=== PATIENT | male | born 1955 | race Hispanic/Latino ===

== ENCOUNTER 2024-07-22 10:07 | Inpatient (IN) | payer MEDICARE ==
[2024-07-22] VITALS (8 sets, daily range): BP systolic 156–183; BP diastolic 67–71; PULSE 64–82; RESP 16–20; TEMP 97.6–99; O2SAT 93–100
[~2024-07-22] VITALS: Ht 167.6 cm; Wt 83.5 kg
[2024-07-22 10:41] LABS: BASOPHILS % 0.2 % (0.0-1.0); EOSINOPHILS % 0.2 % (0.0-6.0); HEMATOCRIT 43.8 % (38.2-49.6); HEMOGLOBIN 14.6 g/dL (14.0-18.0); LYMPHOCYTES # (AUTO) 2.1 (1.0-3.2); LYMPHOCYTES % 16.1 % (18.0-39.1); MEAN CORPUSCULAR HEMOGLOBIN 28.6 pg (28-32); MEAN CORPUSCULAR HGB CONC 33.3 g/dL (31-35); MEAN CORPUSCULAR VOLUME 85.9 fL (81-99); MONOCYTES % 8.1 % (4.4-11.3); NEUTROPHILS # (AUTO) 9.6 (2.1-6.9); NEUTROPHILS % 75.2 % (38.7-80.0); PLATELET COUNT 240 x10e3/uL (140-360); RED CELL DISTRIBUTION WIDTH 13.1 % (11.7-14.4); WHITE BLOOD COUNT 12.76 x10e3/uL (4.8-10.8)
[2024-07-22 10:52] LABS: INR 0.92; PROTHROMBIN TIME 13.2 seconds (11.9-14.5)
[2024-07-22 10:53] LABS: PARTIAL THROMBOPLASTIN TIME 25.9 seconds (23.8-35.5)
[2024-07-22] MEDS: Morphine 4mg INJECTION 4 MG/ML INJ IV STA (10:59)
[2024-07-22] MEDS: SODIUM CHLORIDE 0.9% 1000ML 1,000 ML IV STA (11:00)
[2024-07-22] MEDS: ONDANSETRON HCL INJ 2MG/ML 2ML 2 MG/ML VIAL IV STA (11:00)
[2024-07-22 11:01] LABS: ALBUMIN 3.7 g/dL (3.5-5.0); ALBUMIN/GLOBULIN RATIO 0.8 (0.8-2.0); ANION GAP 15.3 mmol/L (8-16); BILIRUBIN,TOTAL 0.7 mg/dL (0.2-1.2); CALCIUM 9.6 mg/dL (8.4-10.2); CREATININE, SERUM 1.01 mg/dL (0.72-1.25); MAGNESIUM 2.1 MG/DL (1.3-2.1); POTASSIUM 4.3 mmol/L (3.5-5.1); TOTAL PROTEIN 8.1 g/dL (6.5-8.1)
[2024-07-22 11:07] LABS: TROPONIN I 0.015 ng/mL (0-0.300)
[2024-07-22] MEDS ORDERED: IOPAMIDOL 370 MG/ML 100 ML INFUS..BTL INJ ONE (11:17)
[2024-07-22 11:32] LABS: CHOL/HDL RATIO 3.9 (3.9-4.7)
[2024-07-22] MEDS ORDERED: GADOBENATE DIMEGLUMINE 1 ML IV ONE (13:01)
[2024-07-22] MEDS: SODIUM CHLORIDE 0.9% 1000ML 1,000 ML IV SCH (14:54)
[2024-07-22] MEDS ORDERED: PANTOPRAZOLE SO40 MG PO (15:30)
[2024-07-22] MEDS ORDERED: PRAVASTATIN SOD20 MG PO (15:30)
[2024-07-22] MEDS ORDERED: LISINOPRIL-HCT1 EACH PO (15:30)
[2024-07-22] MEDS ORDERED: OMEPRAZOLE20 MG PO (15:30)
[2024-07-22] MEDS ORDERED: HYDRALAZINE HCL 20 MG/ML VIAL IV PRN (16:45)
[2024-07-22] MEDS ORDERED: LIDOCAINE 4% PATCH TP PRN (16:45)
[2024-07-22] MEDS ORDERED: DIPHENHYDRAMINE HCL 25 MG CAP PO PRN (16:45)
[2024-07-22] MEDS ORDERED: ACETAMINOPHEN 325 MG TAB PO PRN (16:45)
[2024-07-22] MEDS ORDERED: POTASSIUM CHLORIDE 20 MEQ TAB CR PO PRN (16:45)
[2024-07-22] MEDS ORDERED: ALBUTEROL/IPRATROPIUM 3 ML NEB NEB PRN (16:45)
[2024-07-22] MEDS ORDERED: SIMETHICONE 80 MG CHEW PO PRN (16:45)
[2024-07-22] MEDS ORDERED: DEXTROSE 50% SYRINGE 50 ML IV PRN (16:45)
[2024-07-22] MEDS ORDERED: BENZONATATE 100 MG CAP PO PRN (16:45)
[2024-07-22] MEDS ORDERED: DOCUSATE SODIUM 100 MG CAP PO PRN (16:45)
[2024-07-22] MEDS: NIFEDIPINE CR 30 MG TAB PO SCH (17:11)
[2024-07-22] MEDS: ENOXAPARIN SOD INJ 40 MG/0.4 ML SYR SC SCH (17:12)
[2024-07-22] MEDS: D5NS/KCL 20MEQ 1,000 ML IV SCH (17:22)
[2024-07-23] VITALS (9 sets, daily range): BP systolic 141–157; BP diastolic 62–72; PULSE 72–83; RESP 13–20; TEMP 98.6–99.3; O2SAT 94–99
[2024-07-23 05:41] LABS: BASOPHILS % 0.2 % (0.0-1.0); EOSINOPHILS # (AUTO) 0.1 (0.0-0.4); EOSINOPHILS % 0.4 % (0.0-6.0); HEMATOCRIT 37.4 % (38.2-49.6); HEMOGLOBIN 12.8 g/dL (14.0-18.0); LYMPHOCYTES # (AUTO) 1.9 (1.0-3.2); LYMPHOCYTES % 16.8 % (18.0-39.1); MEAN CORPUSCULAR HEMOGLOBIN 29.5 pg (28-32); MEAN CORPUSCULAR HGB CONC 34.2 g/dL (31-35); MEAN CORPUSCULAR VOLUME 86.2 fL (81-99); MONOCYTES # (AUTO) 1.1 (0.2-0.8); NEUTROPHILS # (AUTO) 8.1 (2.1-6.9); NEUTROPHILS % 72.3 % (38.7-80.0); PLATELET COUNT 207 x10e3/uL (140-360); RED BLOOD COUNT 4.34 x10e6/uL (4.3-5.7); RED CELL DISTRIBUTION WIDTH 13.2 % (11.7-14.4); WHITE BLOOD COUNT 11.19 x10e3/uL (4.8-10.8)
[2024-07-23 06:29] LABS: ALBUMIN/GLOBULIN RATIO 0.8 (0.8-2.0); ANION GAP 11.1 mmol/L (8-16); BILIRUBIN,TOTAL 0.6 mg/dL (0.2-1.2); CALCIUM 8.6 mg/dL (8.4-10.2); CREATININE, SERUM 0.87 mg/dL (0.72-1.25); POTASSIUM 4.1 mmol/L (3.5-5.1); TOTAL PROTEIN 6.7 g/dL (6.5-8.1)
[2024-07-23] MEDS: PANTOPRAZOLE SOD 40 MG TABEC PO SCH (07:30)
[2024-07-24] VITALS (12 sets, daily range): BP systolic 128–146; BP diastolic 58–69; PULSE 66–82; RESP 16–20; TEMP 98.4–99.1; O2SAT 96–100
[2024-07-24 05:31] LABS: BASOPHILS % 0.2 % (0.0-1.0); EOSINOPHILS # (AUTO) 0.2 (0.0-0.4); EOSINOPHILS % 2.2 % (0.0-6.0); HEMOGLOBIN 12.8 g/dL (14.0-18.0); LYMPHOCYTES # (AUTO) 1.6 (1.0-3.2); LYMPHOCYTES % 17.7 % (18.0-39.1); MEAN CORPUSCULAR HEMOGLOBIN 29.2 pg (28-32); MEAN CORPUSCULAR HGB CONC 33.7 g/dL (31-35); MEAN CORPUSCULAR VOLUME 86.6 fL (81-99); MONOCYTES # (AUTO) 0.9 (0.2-0.8); MONOCYTES % 9.8 % (4.4-11.3); NEUTROPHILS # (AUTO) 6.4 (2.1-6.9); NEUTROPHILS % 69.7 % (38.7-80.0); PLATELET COUNT 213 x10e3/uL (140-360); RED BLOOD COUNT 4.39 x10e6/uL (4.3-5.7); RED CELL DISTRIBUTION WIDTH 13.3 % (11.7-14.4); WHITE BLOOD COUNT 9.23 x10e3/uL (4.8-10.8)
[2024-07-24 06:14] LABS: ALBUMIN 2.8 g/dL (3.5-5.0); ALBUMIN/GLOBULIN RATIO 0.7 (0.8-2.0); ANION GAP 8.9 mmol/L (8-16); CALCIUM 8.6 mg/dL (8.4-10.2); CREATININE, SERUM 0.61 mg/dL (0.72-1.25); POTASSIUM 3.9 mmol/L (3.5-5.1); TOTAL PROTEIN 6.7 g/dL (6.5-8.1)
[2024-07-24 06:27] LABS: BILIRUBIN,TOTAL 0.6 mg/dL (0.2-1.2)
[2024-07-24] MEDS: ONDANSETRON HCL INJ 2MG/ML 2ML 2 MG/ML VIAL IV PRN (19:22)
[2024-07-24] MEDS: Morphine 4mg INJECTION 4 MG/ML INJ IV PRN (19:22)
[2024-07-25] VITALS (8 sets, daily range): BP systolic 118–150; BP diastolic 54–64; PULSE 59–85; RESP 17–20; TEMP 97–98.8; O2SAT 96–100
[2024-07-25] MEDS: MELATONIN 5 MG TABLET PO PRN (00:22)
[2024-07-25 06:05] LABS: HEMATOCRIT 36.7 % (38.2-49.6)
[2024-07-25 06:24] LABS: CALCIUM 8.7 mg/dL (8.4-10.2); CREATININE, SERUM 0.95 mg/dL (0.72-1.25)
[2024-07-25] MEDS ORDERED: FENTANYL CITRATE/PF 100MCG/2 ML INJ ONE (09:33)
[2024-07-25] MEDS ORDERED: MIDAZOLAM HCL 2 MG/2 ML VIAL ONE (09:33)
[2024-07-25] MEDS ORDERED: PROPOFOL IV EMULSION 10 MG/ML 20 ML VIAL ONE ×2 (09:34→10:40)
[2024-07-25] MEDS ORDERED: ROCURONIUM BROMIDE 1 ML IV ONE ×3 (09:36→10:39)
[2024-07-25] MEDS ORDERED: DEXAMETHASONE SOD PHOS INJ 4 MG/ML SDV ONE ×2 (09:36→09:37)
[2024-07-25] MEDS ORDERED: SUCCINYLCHOLINE CHLORIDE 20 MG/ML 10ML VIAL ONE ×2 (09:40→10:39)
[2024-07-25] MEDS ORDERED: SODIUM CHLORIDE 0.9% 100 ML ONE (09:50)
[2024-07-25] MEDS ORDERED: GLUCAGON FOR INJ 1 MG VIAL ONE (10:17)
[2024-07-25] MEDS ORDERED: HYDROMORPHONE 2MG/ML ONE (11:02)
[2024-07-25] MEDS ORDERED: SUGAMMADEX SODIUM 200 MG/2 ML VIAL IV ONE ×2 (11:24→12:16)
[2024-07-25] MEDS ORDERED: HYDRALAZINE HCL 20 MG/ML VIAL ONE (11:50)
[2024-07-25] MEDS ORDERED: ACETAMINOPHEN 1000 MG/100 ML IV PRN (12:30)
[2024-07-25] MEDS ORDERED: MEPERIDINE HCL INJ 25 MG/ML VIAL ONE (12:40)
[2024-07-25] MEDS: MEPERIDINE HCL INJ 25 MG/ML VIAL IV ONE (12:42)
[2024-07-25] MEDS: HYDROMORPHONE 1MG/1ML INJ IV PRN (21:08)
[2024-07-26 03:27] VITALS: BP 120/62; PULSE 63; RESP 18; TEMP 98; O2SAT 100
[2024-07-26 06:27] VITALS: PULSE 78; RESP 22; O2SAT 95
[2024-07-26 07:22] LABS: HEMATOCRIT 34.8 % (38.2-49.6); HEMOGLOBIN 11.7 g/dL (14.0-18.0)
[2024-07-26 07:37] LABS: ALBUMIN 2.8 g/dL (3.5-5.0); ALBUMIN/GLOBULIN RATIO 0.8 (0.8-2.0); ANION GAP 11.1 mmol/L (8-16); BILIRUBIN,TOTAL 0.5 mg/dL (0.2-1.2); CALCIUM 8.7 mg/dL (8.4-10.2); CREATININE, SERUM 0.86 mg/dL (0.72-1.25); POTASSIUM 4.1 mmol/L (3.5-5.1); TOTAL PROTEIN 6.5 g/dL (6.5-8.1)
[2024-07-26 08:05] VITALS: BP 128/54; PULSE 70; RESP 18; TEMP 98.1; O2SAT 99
[2024-07-26 12:35] VITALS: BP 137/57; PULSE 66; RESP 18; TEMP 98; O2SAT 100
== END 2024-07-26 18:00 | disposition home or self-care (01) | DRG 417 ==
LOC: ER 10:14 → ERHOLD 13:00 → MED/SURG2 15:40
PROVIDERS: ADMIT Internal Medicine; ATTEND Internal Medicine
PROC: 0FC98ZZ Extirpation of Matter from Common Bile Duct, Via Natural or Artificial Opening Endoscopic (ICD-10-PCS; 2024-07-25)
PROC: 0FT44ZZ Resection of Gallbladder, Percutaneous Endoscopic Approach (ICD-10-PCS; principal; 2024-07-25 07:00)
DX: K80.00 Calculus of gallbladder with acute cholecystitis without obstruction (principal); K85.10 Biliary acute pancreatitis without necrosis or infection; I10 Essential (primary) hypertension; E78.5 Hyperlipidemia, unspecified; K64.8 Other hemorrhoids
CPT/HCPCS: 36415; 43260; 74177; 74183; 74328; 76705; 80048; 80053; 80061; 82948; 83690; 83735; 84484; 85014; 85018; 85025; 85610; 85730; 88304; 93005; 94799; 99284; C1766; J0330; J0360; J1100; J1171; J1610; J1650; J2175; J2250; J2270; J2405; J2470; J2543; J7030; J7050; Q9967